=== PATIENT | male | born 1965 | race Caucasian/White ===

== ENCOUNTER 2018-03-14 12:31 | Day surgery (SDC) | payer OTHER ==
[2018-03-14] MEDS ORDERED: PROPOFOL 40 ML (16:43)
[2018-03-14] MEDS ORDERED: LIDOCAINE 2% (SDV) 5 ML INJ (16:43)
== END 2018-03-14 17:23 | disposition home or self-care (01) ==
LOC: GIL 12:31
DX: Z12.11 Encounter for screening for malignant neoplasm of colon (principal); D12.3 Benign neoplasm of transverse colon; K57.30 Diverticulosis of large intestine without perforation or abscess without bleeding
CPT/HCPCS: 45380; 88305

== ENCOUNTER 2018-08-29 06:21 | Day surgery (SDC) | payer OTHER ==
[2018-08-29] MEDS ORDERED: CEFAZOLIN 2 GM/50 ML (PMX) 50 ML IVPB (07:00)
[2018-08-29] MEDS ORDERED: LACTATED RINGER'S 1,000 ML IV* (07:00)
[2018-08-29] MEDS ORDERED: ONDANSETRON 4 MG INJ IV (10:00)
[2018-08-29] MEDS ORDERED: SEVOFLURANE 15 MIN (10:00)
[2018-08-29] MEDS ORDERED: PROPOFOL 200 MG INJ (10:00)
[2018-08-29] MEDS ORDERED: OXYCODONE/ACETAMINOPHEN (5/325) TAB PO (10:00)
[2018-08-29] MEDS ORDERED: DIPHENHYDRAMINE 50 MG INJ IV (10:00)
[2018-08-29] MEDS ORDERED: HYDROmorphONE 1 MG/5 ML IV SYRINGE IV ×3 (10:00)
[2018-08-29] MEDS ORDERED: MEPERIDINE 25 MG INJ IV (10:00)
[2018-08-29] MEDS ORDERED: PROCHLORPERAZINE 10 MG INJ IV (10:00)
[2018-08-29] MEDS ORDERED: FENTAnyl 50 MCG/ML VIAL IV ×3 (10:00)
[2018-08-29] MEDS ORDERED: ROCURONIUM 50 MG INJ (10:05)
[2018-08-29] MEDS ORDERED: PROPOFOL 20 ML (10:05)
[2018-08-29] MEDS ORDERED: SUCCINYLCHOLINE CHLORIDE 100 MG/5 ML SYG IV (10:05)
[2018-08-29] MEDS ORDERED: LIDOCAINE 2% (SDV) 5 ML INJ (10:05)
[2018-08-29] MEDS ORDERED: MIDAZOLAM 1 MG/ML 2 ML INJ (10:06)
[2018-08-29] MEDS ORDERED: FENTAnyl 50 MCG/ML VIAL (10:06)
[2018-08-29] MEDS ORDERED: ROPIVACAINE 0.5 % 30 ML VIAL (10:17)
[2018-08-29] MEDS ORDERED: CEFAZOLIN 1 GM INJ ×2 (10:23→10:27)
[2018-08-29] MEDS ORDERED: FAMOTIDINE 20 MG INJ (10:23)
[2018-08-29] MEDS ORDERED: DEXAMETHASONE 4 MG/ML 5 ML INJ (10:23)
[2018-08-29] MEDS ORDERED: ONDANSETRON 4 MG INJ (10:23)
[2018-08-29] MEDS ORDERED: HYDROmorphONE 2 MG/ML SYG (10:31)
[2018-08-29] MEDS: BUPIVACAINE 0.25% (MPF) 30 ML INJ (10:43)
[2018-08-29] MEDS ORDERED: NEOSTIGMINE 10 MG INJ (11:04)
[2018-08-29] MEDS ORDERED: GLYCOPYRROLATE 0.4 MG INJ (11:04)
[2018-08-29] MEDS: HYDROCODONE/APAP (5/325) TAB PO (13:16)
== END 2018-08-29 14:00 | disposition home or self-care (01) ==
LOC: SDS 06:21
DX: K40.30 Unilateral inguinal hernia, with obstruction, without gangrene, not specified as recurrent (principal)
CPT/HCPCS: 49507